=== PATIENT | female | born 1975 | race Caucasian/White ===

== ENCOUNTER 2018-12-03 22:35 | Emergency (ER) | payer BC ==
[2018-12-03 23:45] VITALS: BP 119/78; PULSE 80
[2018-12-03 23:47] VITALS: O2SAT 99
--- NOTE | 2018-12-03 23:47 | ERPHSYRPT ---
- History of Present Illness Time Seen by Provider: 12/03/18 23:05 Source: patient Exam Limitations: clinical condition Patient Subjective Stated Complaint: pt is alert and oriented. pt is ambulatory with a limp to her left side. pt comes in with c/o toe injury/pain. pt states that she stubbed her little toe on her left foot on a table/chair leg and that she then has been shopping and walking on it all day and that it has felt progressively worse. pt little toe on left foot has purple discoloration. mild swelling. pedal pulses equal. no loss of sensation. no pain into the foot. Triage Nursing Assessment: see above Physician History: PATIENT STUBBED LEFT TOE ONTO FURNITURE SUSTAINED PAIN, SWELLING AND BRUISING. HAS PAIN UPON WEIGHT BEARING. Method of Injury: direct blow Occurred: just prior to arrival Quality: constant Severity of Pain-Max: moderate Severity of Pain-Current: moderate Lower Extremities Pain: 5th toe: left Modifying Factors: Improves With: movement Associated Symptoms: unable to bear weight Allergies/Adverse Reactions: morphine Allergy (Verified 12/03/18 22:56) Immunizations Up to Date: Yes - Review of Systems Constitutional: No Fever, No Chills Eyes: No Symptoms Ears, Nose, & Throat: No Symptoms Respiratory: No Cough, No Dyspnea Cardiac: No Chest Pain, No Edema, No Syncope Abdominal/Gastrointestinal: No Abdominal Pain, No Nausea, No Vomiting, No Diarrhea Genitourinary Symptoms: No Dysuria Musculoskeletal: No Back Pain, No Neck Pain Skin: No Rash Neurological: No Dizziness, No Focal Weakness, No Sensory Changes Psychological: No Symptoms Endocrine: No Symptoms All Other Systems: Reviewed and Negative - Past Medical History Pertinent Past Medical History: No - Past Surgical History Past Surgical History: Yes Female Surgical History: Section Other Surgical History: x2 - Social History Smoking Status: Never smoker Drug Use: none - Female History Hx Now: No - Nursing Vital Signs Nursing Vital Signs: Initial Vital Signs Temperature 98.6 F 12/03/18 22:51 Pulse Rate 84 12/03/18 22:51 Respiratory Rate 18 12/03/18 22:51 Blood Pressure 139/86 12/03/18 22:51 O2 Sat by Pulse Oximetry 99 12/03/18 22:51 Pain Scale Pain Intensity 3 - Physical Exam General Appearance: no apparent distress Eyes, Ears, Nose, Throat Exam: normal ENT inspection Neck Exam: normal inspection Cardiovascular/Respiratory Exam: chest non-tender Foot Exam: right foot: pain (PROXIMAL ASPECT PROXIMAL PHALANGX TENDERNESS PROXIMAL ASPECT PROXIMAL PHALANGE LEFT ), soft tissue tenderness DTR - Lower Extremities Exam: knee (R): 2+, knee (L): 2+, ankle (R): 2+, ankle ( L): 2+ Neuro/Tendon Exam: normal sensation SpO2 Interpretation: normal SpO2: 99 O2 Delivery: Room Air - Radiology Exams Left Hip X-ray Interpretation: Negative, Nml Mediastinum Ordered Tests: Active Orders 24 hr Category Date Time Status FOOT (MINIMUM 3 VIEWS) Stat Exams 12/03/18 23:21 Taken - Progress Progress Note: 12/03/18 23:48 ESE LEFT 4TH AND 5 TAPED., Counseled pt/family regarding: need for follow-up - Departure Departure Disposition: Home Clinical Impression: CONTUSION/STRAIN LEFT 5TH TO5 Condition: Stable Critical Care Time: No Referrals: DOCTOR,NO FAMILY [Primary Care Provider] - Additional Instructions: TYLENOL OR MOTRIN NEEDED FOR PAIN. ELEVATE FOOT ABOVE YOUR WAIST AND APPLY ICE EVERY 4 HOURS, 30 MINUTES FOR DURATION 48 HOURS.
--- NOTE | 2018-12-04 08:59 | XRAY ---
Indication: 5th toe pain and bruising following injury. Comparison: November 05, 2013. 3 nonweightbearing views of the left foot demonstrates new tiny plantar heel spur. No other bony, articular, or soft tissue abnormalities.
== END 2018-12-04 00:04 | disposition home or self-care (01) ==
LOC: ED 22:35
DX: S90.122A Contusion of left lesser toe(s) without damage to nail, initial encounter (principal); W22.03XA Walked into furniture, initial encounter; S93.509A Unspecified sprain of unspecified toe(s), initial encounter
CPT/HCPCS: 73630; 99283